=== PATIENT | female | born 1995 | race Two or more races ===

== ENCOUNTER 2022-03-09 10:34 | Emergency (ER) | payer BC ==
[~2022-03-09] VITALS: Ht 160 cm; Wt 54.5 kg
[2022-03-09 13:00] VITALS: BP 108/66
== END 2022-03-09 14:11 | disposition home or self-care (01) ==
LOC: ER 10:41
DX: S01.01XA Laceration without foreign body of scalp, initial encounter (principal); Z88.0 Allergy status to penicillin; Z88.2 Allergy status to sulfonamides; W18.39XA Other fall on same level, initial encounter; Y93.89 Activity, other specified; Y92.89 Other specified places as the place of occurrence of the external cause; Y99.8 Other external cause status
CPT/HCPCS: 12002; 70450